=== PATIENT | male | born 1960 | race Caucasian/White ===

== ENCOUNTER → 2016-12-19 | Outpatient (CLI) | payer OTHER ==
--- NOTE | 2016-12-19 22:36 | ECGEPIP ---
Stationary ECG Study [facility] Test Date: 2016-12-19 Pat Name: YOLI VILLARREAL Department: Room: - Gender: M [employer] Installer: JAKUB : [id number] Requested By: Faustino Caldwell Order Number: [id number] Reading MD: Nghia Rueda Measurements Intervals Vian Rate: 68 P: 43 MI: 164 QRS: 54 QRSD: 106 T: 38 QT: 389 QTc: 415 Interpretive Statements SINUS RHYTHM, Early repolarization. No prior ECG available for comparison at the time of interpretation. Electronically Signed On 12-19-2016 22:36:23 EDT by Nghia Rueda
== END ==
LOC: M EKG 11:26
PROVIDERS: ATTEND Orthopaedic Surgery
DX: Z01.810 Encounter for preprocedural cardiovascular examination (principal)